=== PATIENT | male | born 1965 | race Caucasian/White ===

== ENCOUNTER 2018-02-24 14:03 | Emergency (ER) | payer MEDICAID ==
[~2018-02-24] VITALS: Ht 180.3 cm; Wt 90.9 kg
[2018-02-24 14:06] VITALS: BP 139/81; PULSE 99; RESP 18
[2018-02-24 14:09] VITALS: BP 139/81; PULSE 100; RESP 18; O2SAT 99
[2018-02-24 14:13] VITALS: PULSE 105; RESP 18; O2SAT 99
[2018-02-24] MEDS ORDERED: LORazepam 2 MG/ML VIAL IV PUSH ONE ×2 (14:15)
[2018-02-24] MEDS ORDERED: SODIUM CHLOR 0.9% 1000 ML INJ 1,000 ML IV SCH (14:15)
--- NOTE | 2018-02-24 14:16 | PD ---
HPI Chief Complaint: Seizure Time Seen by Provider: 14:08 Travel History International Travel<30 days: No Contact w/Intl Traveler<30days: No Traveled to known affect area: No History of Present Illness HPI A middle aged male was brought in by EMS with seizure. Patient came from home. EMS was called. Patient has history of seizure. Patient has not been compliant with his medication at home. Patient was reported to be on Dilantin. Patient was given Versed [address] the way to the ED. 17 11 PM. Patient's came in and provided more information. Patient now awake alert. Patient was on Dilantin 100 mg 3 times a day and Keppra 500 mg twice a day. Patient ran out of medication 3 months ago. Patient denies any alcohol or drug abuse. Patient has history of chronic headache in the back of the head. Patient denies any neck pain. Patient denies any chest pain or shortness of breath. Patient denies abdominal pain. Patient denies any focal weakness or numbness of the extremity. PFSH Past Medical History Seizures: Yes Social History Alcohol Use: No Tobacco Use: No Substance Use: No Allergies-Medications (Allergen,Severity, Reaction): Coded Allergies: No Known Allergies (Unverified , 02/24/18) Reported Meds & Prescriptions Reported Meds & Active Scripts Active Reported Keppra (Levetiracetam) 500 Mg Tab 500 Mg BID Dilantin (Phenytoin Extended) 100 Mg Cap 100 Mg PO TID Review of Systems ROS Limitations: Altered Mental Status General / Constitutional: No: Fever Eyes: No: Visual changes HENT: Positive: Headaches Cardiovascular: No: Chest Pain or Discomfort Respiratory: No: Shortness of Breath Gastrointestinal: No: Abdominal Pain Genitourinary: No: Dysuria Musculoskeletal: No: Pain Skin: No Rash Neurologic: No: Weakness Psychiatric: No: Depression Endocrine: No: Polydipsia Hematologic/Lymphatic: No: Easy Bruising Physical Exam Narrative GENERAL: Well-nourished, well-developed patient. SKIN: Focused skin assessment warm/dry. HEAD: Normocephalic. EYES: No scleral icterus. No injection or drainage. Pupils 3 mm equal reactive. NECK: Supple, trachea midline. No JVD or lymphadenopathy. CARDIOVASCULAR: Regular rate and rhythm without murmurs, gallops, or rubs. RESPIRATORY: Breath sounds equal bilaterally. No accessory muscle use. GASTROINTESTINAL: Abdomen soft, non-tender, nondistended. MUSCULOSKELETAL: No cyanosis, or edema. BACK: Nontender without obvious deformity. No CVA tenderness. Neurologic exam: Patient having seizure with generalized tonic-clonic activity. Data Data Last Documented VS Vital Signs Date Time Temp Pulse Resp B/P (MAP) Pulse Ox O2 Delivery O2 Flow Rate FiO2 02/24/18 16:20 82 18 125/74 (91) 99 Room Air 02/24/18 14:13 4.00 Orders Orders Lorazepam Inj (Ativan Inj) (02/24/18 14:15) Lorazepam Inj (Ativan Inj) (02/24/18 14:15) Sodium Chlor 0.9% 1000 Ml Inj (Ns 1000 M (02/24/18 14:15) Complete Blood Count With Diff (02/24/18 14:09) Comprehensive Metabolic Panel (02/24/18 14:09) Prothrombin Time / Inr (Pt) (02/24/18 14:09) Act Partial Throm Time (Ptt) (02/24/18 14:09) Phenytoin (Dilantin) (02/24/18 14:09) Thyroid Stimulating Hormone (02/24/18 14:09) Chest, Single Ap (02/24/18 14:09) Ct Brain W/O Iv Contrast(Rout) (02/24/18 14:09) Iv Access Insert/Monitor (02/24/18 14:09) Ecg Monitoring (02/24/18 14:09) Oximetry (02/24/18 14:09) Drug Screen, Random Urine (02/24/18 14:09) Fosphenytoin Inj (Cerebyx Inj) (02/24/18 17:15) Levetiracetam Inj (Keppra Inj) (02/24/18 17:15) Labs Laboratory Tests Test 02/24/18 14:27 02/24/18 15:14 White Blood Count 5.8 TH/MM3 Red Blood Count 4.35 MIL/MM3 Hemoglobin 13.0 GM/DL Hematocrit 38.2 % Mean Corpuscular Volume 87.6 FL Mean Corpuscular Hemoglobin 29.8 PG Mean Corpuscular Hemoglobin Concent 34.0 % Red Cell Distribution Width 12.8 % Platelet Count 172 TH/MM3 Mean Platelet Volume 9.3 FL Neutrophils (%) (Auto) 74.3 % Lymphocytes (%) (Auto) 13.7 % Monocytes (%) (Auto) 9.7 % Eosinophils (%) (Auto) 2.0 % Basophils (%) (Auto) 0.3 % Neutrophils # (Auto) 4.3 TH/MM3 Lymphocytes # (Auto) 0.8 TH/MM3 Monocytes # (Auto) 0.6 TH/MM3 Eosinophils # (Auto) 0.1 TH/MM3 Basophils # (Auto) 0.0 TH/MM3 CBC Comment DIFF FINAL Differential Comment Prothrombin Time 11.4 SEC Prothromb Time International Ratio 1.1 RATIO Activated Partial Thromboplast Time 29.2 SEC Blood Urea Nitrogen 16 MG/DL Creatinine 0.82 MG/DL Random Glucose 103 MG/DL Total Protein 6.6 GM/DL Albumin 3.1 GM/DL Calcium Level 8.8 MG/DL Alkaline Phosphatase 49 U/L Aspartate Amino Transf (AST/SGOT) 15 U/L Alanine Aminotransferase (ALT/SGPT) 16 U/L Total Bilirubin 0.3 MG/DL Sodium Level 137 MEQ/L Potassium Level 3.7 MEQ/L Chloride Level 105 MEQ/L Carbon Dioxide Level 21.0 MEQ/L Anion Gap 11 MEQ/L Estimat Glomerular Filtration Rate 81 ML/MIN Thyroid Stimulating Hormone 3rd Gen 0.659 uIU/ML Phenytoin (Dilantin) Level 0.4 MCG/ML Urine Opiates Screen POS Urine Barbiturates Screen NEG Urine Amphetamines Screen NEG Urine Benzodiazepines Screen POS Urine Cocaine Screen NEG Urine Cannabinoids Screen POS MDM Medical Decision Making Medical Screen Exam Complete: Yes Emergency Medical Condition: Yes Interpretation(s) Last Impressions Head CT 02/24/18 140 Signed Impressions: CONCLUSION: 1. No evidence of acute infarct, hemorrhage, mass or edema. 2. Scattered benign dural calcifications. 3. Bilateral basal ganglia calcifications. Chest X-Ray 02/24/181408 Signed Impressions: CONCLUSION: Minimal bibasilar patchiness consistent with atelectasis and/or developing infi ltrates. Clinical relation is recommended. 1700 PM. CBC within normal limits. WBC 5.8. 74 neutrophil. CMP within normal limits. TSH normal. Phenytoin 0.4. Urine drug screen positive for opiates, benzodiazepine, cannabis. Differential Diagnosis Differential diagnosis including breakthrough seizures, noncompliance, electrolyte abnormality, dehydration. Narrative Course Middle aged male was brought in by EMS having seizure. History of seizure. Patient was on Dilantin and Keppra. History of noncompliance with medication. Patient was given Versed 2 mg IV by EMS prior to arrival. Ativan 2 mg IV. Repeated Ativan 2 mg IV. Fosphenytoin 1 g IV given. Keppra 1 g IV given. Diagnosis Primary Impression: Seizure Additional Impression: Noncompliance Patient Instructions: General Instructions Additional Instructions: Take Dilantin and Keppra as directed. Follow-up with local physician for blood level checked. Med/Other Pt SpecificInfo: Prescription(s) given Scripts Levetiracetam (Keppra) 500 Mg Tab 500 MG PO BID for Control Seizures, #60 TAB 0 Refills Prov: Harshil Hager MD 02/24/18 Phenytoin Extended (Dilantin) 100 Mg Cap 100 MG PO TID for Control Seizures, #90 CAP 0 Refills Prov: Harshil Hager MD 02/24/18 Disposition: 01 DISCHARGE HOME Condition: Stable Harshil Hager MD Feb 24, 2018 14:16
--- NOTE | 2018-02-24 14:52 | RADRPT ---
EXAM DATE: 02/24/2018 2:47 PM EDT AGE/SEX: 89 years / Male INDICATIONS: Shortness of breath. CLINICAL DATA: This is the patient's initial encounter. Patient reports that signs and symptoms have been present for 1 day and indicates a pain score of Nonresponsive. MEDICAL/SURGICAL HISTORY: Non-responsive. Non-responsive. COMPARISON: No prior exams available for comparison. FINDINGS: Minimal bibasilar patchiness is noted consistent with atelectasis and/or developing infiltrates. The heart is normal. CONCLUSION: Minimal bibasilar patchiness consistent with atelectasis and/or developing infiltrates. Clinical rela tion is recommended. Electronically signed by: Yaw Bernardo MD 02/24/2018 2:51 PM EDT
[2018-02-24 14:56] LABS: AUTOMATED NEUTROPHIL # 4.3 TH/MM3 (1.8-7.7); BASOPHIL % 0.3 % (0.0-2.0); EOSINOPHIL # 0.1 TH/MM3 (0-0.4); HEMATOCRIT 38.2 % (39.0-51.0); LYMPH % 13.7 % (9.0-44.0); LYMPHOCYTE # 0.8 TH/MM3 (1.0-4.8); MEAN CELL VOLUME 87.6 FL (80.0-100.0); MEAN CORPUSCULAR HEMOGLOBIN 29.8 PG (27.0-34.0); MEAN PLATELET VOLUME 9.3 FL (7.0-11.0); MONO % 9.7 % (0.0-8.0); MONOCYTE # 0.6 TH/MM3 (0-0.9); NEUT % 74.3 % (16.0-70.0); PLATELET COUNT 172 TH/MM3 (150-450); RED BLOOD COUNT 4.35 MIL/MM3 (4.50-5.90); RED CELL DISTRIBUTION WIDTH 12.8 % (11.6-17.2); WHITE BLOOD COUNT 5.8 TH/MM3 (4.0-11.0)
[2018-02-24 15:05] LABS: INTERNATIONAL NORMALIZED RATIO 1.1 RATIO; PROTHROMBIN TIME - PATIENT 11.4 SEC (9.8-11.6)
[2018-02-24 15:22] LABS: ALKALINE PHOSPHATASE 49 U/L (45-117); PHENYTOIN (DILANTIN) 0.4 MCG/ML (10.0-20.0); TOTAL BILIRUBIN ADULT 0.3 MG/DL (0.2-1.0); TOTAL PROTEIN 6.6 GM/DL (6.4-8.2)
[2018-02-24 15:24] LABS: ALBUMIN 3.1 GM/DL (3.4-5.0); ALT (GPT) 16 U/L (12-78); AST (GOT) 15 U/L (15-37); BLOOD UREA NITROGEN 16 MG/DL (7-18); CALCIUM 8.8 MG/DL (8.5-10.1); CHLORIDE 105 MEQ/L (98-107); CREATININE 0.82 MG/DL (0.60-1.30); GLOMERULAR FILTRATION RATE 81 ML/MIN (>89); GLUCOSE,RANDOM 103 MG/DL (74-106); SODIUM (NA) 137 MEQ/L (136-145)
--- NOTE | 2018-02-24 15:38 | RADRPT ---
EXAM DATE: 02/24/2018 3:29 PM EDT AGE/SEX: 89 years / Male INDICATIONS: Altered mental status. Possible seizure. CLINICAL DATA: This is the patient's initial encounter. Patient reports that signs and symptoms have been present for 1 day and indicates a pain score of Nonresponsive. MEDICAL/SURGICAL HISTORY: None. None. RADIATION DOSE: 34.35 CTDI (mGy) COMPARISON: No prior exams available for comparison. TECHNIQUE: CT of the head without contrast. Using automated exposure control and adjustment of the mA and/or kV according to patient size, radiation dose was kept as low as reasonably achievable to ob tain optimal diagnostic quality images. FINDINGS: Cerebrum: The ventricles are normal for age. No evidence of midline shift, mass lesion, hemorrhage or acute infarction. No extraaxial fluid collections are seen. Small calcified dural deposits seen a long the interhemispheric fissure and along the tentorium. Bilateral basal ganglionic calcifications are noted. Posterior Fossa: The cerebellum and brainstem are intact. The 4th ventricle is midline. The cerebe llopontine angle is unremarkable. Extracranial: The visualized portion of the orbits is intact. Skull: The calvaria is intact. No evidence of skull fracture. CONCLUSION: 1. No evidence of acute infarct, hemorrhage, mass or edema. 2. Scattered benign dural calcifications. 3. Bilateral basal ganglia calcifications. Electronically signed by: Drew Gusman MD 02/24/2018 3:37 PM EDT
[2018-02-24 16:20] VITALS: BP 125/74; PULSE 82; RESP 18; O2SAT 99
[2018-02-24] MEDS ORDERED: DILA100C PO ×2 (17:08→17:15)
[2018-02-24] MEDS ORDERED: LEVE500 (17:08)
[2018-02-24] MEDS ORDERED: FOSPHENYTOIN INJ 1,000 MGPE in SODIUM CHLORIDE 0.9% INJ 50 ML IV ONE (17:15)
[2018-02-24] MEDS ORDERED: LEVE500 PO (17:15)
[2018-02-24] MEDS ORDERED: levETIRAcetam INJ 100 ML IV ONE (17:15)
== END 2018-02-24 19:46 | disposition home or self-care (01) ==
LOC: EDBD 14:03 → NEPC 14:03
DX: R56.9 Unspecified convulsions (principal); Z91.14 Patient's other noncompliance with medication regimen; R51 Headache
CPT/HCPCS: 70450; 71045; 80053; 80185; 80307; 84443; 85025; 85610; 85730; 96361; 96365; 96368; 96375; 99285; J1953; J2060; J7030; Q2009